=== PATIENT | female | born 1945 | race Caucasian/White ===

== ENCOUNTER 2024-02-23 06:28 | Day surgery (SDC) | payer OTHER, SELFPAY ==
[2024-01-09 09:18] LABS: Hematocrit 40.4 % (37.0-47.0); Hemoglobin 13.4 g/dL (12.0-16.0); Mean Corp Hgb Conc. 33.2 g/dL (33.0-37.0); Mean Corpuscular Volume 90.6 fL (81.0-99.0); Mean Platelet Volume 10.9 fL (7.4-10.4); Platelet Count 256 10^3/uL (130-400); Red Blood Cell Count 4.46 10^6/uL (4.20-5.40); Red Cell Dist. Width 12.6 % (11.5-14.5); White Blood Cell Count 6.7 10^3/uL (4.8-10.8)
[2024-01-09 09:25] LABS: Blood Urea Nitrogen 22 mg/dl (7-17); Calcium 10.5 mg/dl (8.4-10.2); Carbon Dioxide 27 mmol/L (22-30); Chloride 104 mmol/L (98-107); Glucose 101 mg/dl (70-99); Potassium 4.4 mmol/L (3.5-5.1); Sodium 138 mmol/L (135-145); eGFR 58.02
[2024-01-09 09:37] VITALS: BMI 27.8
--- NOTE | 2024-01-12 09:54 | PTCARENOTE ---
eGFR 58.02 collected on 01/09/24; Dasia @ 's office was notified.
[2024-02-23] VITALS (8 sets, daily range): BP systolic 105–141; BP diastolic 55–99; BMI 27.8
[2024-02-23] MEDS: Pyridium 200 MG PO (11:01)
[2024-02-23] MEDS: NORMOSOL-R 1000 IV (11:34)
== END 2024-02-23 17:52 | disposition home or self-care (01) ==
LOC: SDS 06:28
PROVIDERS: ATTENDING PHYSICIAN Obstetrics & Gynecology; FAMILY PHYSICIAN Family Medicine
DX: N81.2 Incomplete uterovaginal prolapse (principal); N95.2 Postmenopausal atrophic vaginitis
CPT/HCPCS: 57282; 57260; 36415; 80048; 85027; 86850; 86900; 86901; 93005